=== PATIENT | male | born 1985 | race Caucasian/White ===

== ENCOUNTER 2018-01-26 15:47 | Emergency (ER) | payer OTHER ==
[2018-01-26 16:28] LABS: PLATELET COUNT 378 10^3/uL (150-400)
--- NOTE | 2018-01-26 16:28 | EDPHY ---
H & P Stated Complaint: Palpitations c chst tightness x3mos, worse p eating Time Seen by Provider: 01/26/18 16:03 HPI/ROS: CHIEF COMPLAINT: Palpitations, chest tightness, anxiety HISTORY OF PRESENT ILLNESS: This is a 32-year-old male who reports that over the last 3 months he has had very frequent and increasing in frequency episodes of palpitations where he feels like his heart is racing associated with some chest tightness. He seems to think these are related to eating, however, when questioned further the symptoms do not occur until greater than an hour or so after eating. He does state that he snacks throughout the day. With his palpitations he has some anxiety, feels some chest tightness and some shortness of breath, feels woozy. No lightheadedness, no fainting. Patient denies a history of fevers or chills, cough or sputum production, no history of abdominal pain. No history of GERD, reflux, pancreatitis, gallstones. Patient does report he is concerned regarding a generalized inflammatory process in his body. He has a history of tendinitis and has broken out in acne on his face which he thinks may be related to diet. Of note, he eats no sugar, no caffeine intake, no alcohol, and has been on vegan diet for the last week. Patient called his primary care physician's office today just out of frustration that these symptoms have been going on for so long and was referred to the emergency department. REVIEW OF SYSTEMS: A comprehensive 10 system review of systems was reviewed and is otherwise negative aside from elements mentioned in the history of present illness and medical decision making. PAST MEDICAL HISTORY: Tendinitis. History of significant tonsillitis in September requiring 2 rounds of antibiotics. SOCIAL HISTORY: Nonsmoker, vaporizes marijuana oil, rare alcohol use. VITAL SIGNS Reviewed by me. GENERAL: Well-developed, well-nourished, resting comfortably in no respiratory distress. HEENT: Atraumatic. Patient does have some cystic acne his nasal labial folds bilaterally. Eyes: No icterus, no injection. Mouth: moist mucous membranes. No erythema or lesions. Neck: supple with no adenopathy. LUNGS: Clear to auscultation bilaterally, no wheezes, rhonchi or rales. CARDIAC: Regular rate and rhythm, no rubs, murmurs or gallops. ABDOMEN: Soft, mild left lower quadrant tenderness, no guarding or rebound. Bowel sounds normal. BACK: No CVA tenderness. EXTREMITIES: No trauma. No edema. Range of motion is normal throughout. NEURO: Alert and oriented, grossly nonfocal. SKIN: Warm and dry, no rash. PSYCHIATRIC: Normal mentation, no agitation. - Personal History Current Tetanus/Diphtheria Vaccine: Unsure - Medical/Surgical History Hx Asthma: No Hx Chronic Respiratory Disease: No Hx Diabetes: No Hx Cardiac Disease: No Hx Renal Disease: No Hx Cirrhosis: No Hx Alcoholism: No Hx HIV/AIDS: No Hx Splenectomy or Spleen Trauma: No Other PMH: anxiety, tendonitis - Social History Smoking Status: Former smoker Constitutional: Initial Vital Signs Temperature (C) 36.4 C 01/26/18 15:53 Heart Rate 91 01/26/18 15:53 Respiratory Rate 16 01/26/18 15:53 Blood Pressure 138/87 H 01/26/18 15:53 O2 Sat (%) 100 01/26/18 15:53 O2 Delivery Mode Room Air Allergies/Adverse Reactions: codeine Allergy (Verified 01/26/18 15:52) Medical Decision Making - Diagnostics EKG Interpretation: 12-LEAD EKG: Please see the full report in [facility]. My interpretation: Sinus rhythm, normal intervals Imaging Results: Impression: No acute cardiopulmonary process. Dictated By: Tommy Broussard MD Imaging: I viewed and interpreted images myself ED Course/Re-evaluation: 32-year-old gentleman presenting to the emergency department with intermittent episodes of palpitations associated with some chest discomfort. These episodes have been occurring for several months. Patient's evaluation included an EKG with normal sinus rhythm, normal intervals , no ST or T-wave changes. Normal electrolytes, negative troponin, negative D- dimer. Patient had TSH ordered which was not available at the time of discharge. Chest x-ray also demonstrates no acute abnormalities. I held a long discussion with the patient concerning his complaints as well as potential causes. We discussed GI causes, keeping a journal of the the episodes of palpitation, potential pulmonary irritation from vaporizing of marijuana. We discussed close follow-up. The patient is comfortable being discharged home and will follow up with his primary care physician for further evaluation. Differential Diagnosis: Differential diagnoses for the patient's sensation of palpitations was considered including but not limited to sinus tachycardia, PACs, PVCs, SVT, atrial fibrillation, atrial flutter, anxiety, panic attack. - Data Points Laboratory Results: Laboratory Results 01/26/18 16:13 01/26/18 16:13 Point of Care Test Results: Chemistry 01/26/18 16:16 POC Troponin I 0.01 ng/mL ng/mL (0.00-0.08) Departure - Departure Disposition: Home, Routine, Self-Care Clinical Impression: Palpitations Condition: Good Instructions: Heart Palpitations (ED) Additional Instructions: A no definitive cause of your symptoms has been identified today. Your electrolytes are normal, your kidney function is normal, your thyroid studies are pending. Your chest x-ray is normal, EKG shows no abnormalities. Please consider keeping some type of a log regarding the palpitations to see if they are in fact related to particular food or eating. If so, you might consider a 2 week course of omeprazole to help with any type of reflux that may be triggering palpitations. Please follow up with your primary care physician to arrange a Holter monitor. If you developed palpitations which are lasting a prolonged period of time, associated with significant chest pain, lightheadedness, fainting, sweating, or other concerns, please return to the emergency department or seek care urgently. You or your primary care physician may call and obtain the results of the thyroid studies tomorrow. Referrals: EMILIO JUDD [Primary Care Provider] - As per Instructions (Please follow up with Dr. Judd's office for further evaluation. I would recommend a Holter monitor.)
[2018-01-26 17:39] VITALS: BP 125/90
--- NOTE | 2018-01-27 01:15 | CPEKG ---
Test Reason : OPEN Blood Pressure : / mmHG Vent. Rate : 096 BPM Atrial Rate : 096 BPM P-R Int : 129 ms QRS Dur : 092 ms QT Int : 347 ms P-R-T Axes : 063 054 044 degrees QTc Int : 439 ms Sinus rhythm Confirmed by Laura Murry ([id number]) on 01/27/2018 1:14:27 AM Referred By: Confirmed By:Laura Murry
== END 2018-01-26 17:44 | disposition home or self-care (01) ==
DX: R00.2 Palpitations (principal); Z87.891 Personal history of nicotine dependence
CPT/HCPCS: 84484-PO